=== PATIENT | female | born 1970 | race Caucasian/White ===

== ENCOUNTER 2018-11-20 13:31 | Emergency (ER) | payer OTHER ==
[~2018-11-20] VITALS: Ht 157.5 cm; Wt 70.3 kg
[2018-11-20 13:38] VITALS: Ht 157.5 cm; Wt 70.3 kg
[2018-11-20] MEDS ORDERED: KETOROLAC 30 MG INJ IV STA (14:07)
--- NOTE | 2018-11-20 14:14 | ERD ---
ER Documentation Chief Complaint Chief Complaint L hand swelling x 2 days HPI Patient is a 48 years old female with no known PMHx presenting to the clinic for sudden left hand swelling and pain since yesterday. Patient reports unable to close hand due to pain. Patient denies any injury or trauma. Patient admits to visiting her PCP who sent her to the ER. Patient denies fever, chills, rashes, joint pain. ROS All systems reviewed and are negative except as per history of present illness. Medications Home Meds Active Scripts Methylprednisolone* (Medrol* DOSE PACK) 4 Mg/Dose-Pack Tab.ds.pk, 4 MG PO . DIRECTED for 5 Days, PACKET Prov:ALFREDO PAIGE PA-C 11/20/18 Ibuprofen* (Motrin*) 800 Mg Tab, 800 MG PO Q6, #30 TAB Prov:ALFREDO PAIGE PA-C 11/20/18 Allergies Allergies: Coded Allergies: No Known Allergy (Unverified , 11/20/18) Physical Exam Vitals Vital Signs Date Temp Pulse Resp B/P (MAP) Pulse Ox O2 O2 Flow FiO2 Time Delivery Rate 11/20/18 98.1 71 18 113/63 100 Room Air 17:19 (80) 11/20/18 98.7 89 16 116/55 100 13:38 (75) Physical Exam Const: No acute distress Head: Atraumatic Eyes: Normal Conjunctiva ENT: Normal External Ears, Nose and Mouth. Neck: Full range of motion. No meningismus. Resp: Clear to auscultation bilaterally Cardio: Regular rate and rhythm, no murmurs Abd: Soft, non tender, non distended. Normal bowel sounds Skin: No petechiae or rashes Back: No midline or flank tenderness Ext: No cyanosis, or edema Neur: Awake and alert Psych: Normal Mood and Affect Left Hand Exam: Swelling & tenderness across entire hand and digits. Negative Tinel sign. Patient unable to form a fist for flex digits due to pain. No signs of gross trauma. Skin is soft to touch. No signs of erythema or induration. Result Diagram: 11/20/18 1437 11/20/18 1437 Results 24 hrs Laboratory Tests Test 11/20/18 14:37 11/20/18 15:15 White Blood Count 10.0 10^3/ul Red Blood Count 4.58 10^6/ul Hemoglobin 12.9 g/dl Hematocrit 39.5 % Mean Corpuscular Volume 86.2 fl Mean Corpuscular Hemoglobin 28.2 pg Mean Corpuscular Hemoglobin Concent 32.7 g/dl Red Cell Distribution Width 14.4 % Platelet Count 293 10^3/UL Mean Platelet Volume 9.0 fl Immature Granulocytes % 0.100 % Neutrophils % 57.1 % Lymphocytes % 34.0 % Monocytes % 6.8 % Eosinophils % 1.5 % Basophils % 0.5 % Nucleated Red Blood Cells % 0.0 /100WBC Immature Granulocytes # 0.010 10^3/ul Neutrophils # 5.7 10^3/ul Lymphocytes # 3.4 10^3/ul Monocytes # 0.7 10^3/ul Eosinophils # 0.2 10^3/ul Basophils # 0.1 10^3/ul Nucleated Red Blood Cells # 0.0 10^3/ul Sodium Level 142 mmol/L Potassium Level 3.7 mmol/L Chloride Level 106 mmol/L Carbon Dioxide Level 27 mmol/L Anion Gap 9 Blood Urea Nitrogen 8 mg/dl Creatinine 0.77 mg/dl Est Glomerular Filtrat Rate mL/min > 60 mL/min Glucose Level 74 mg/dl Calcium Level 9.0 mg/dl Total Bilirubin 0.3 mg/dl Direct Bilirubin 0.00 mg/dl Indirect Bilirubin 0.3 mg/dl Aspartate Amino Transf (AST/SGOT) 19 IU/L Alanine Aminotransferase (ALT/SGPT) 19 IU/L Alkaline Phosphatase 114 IU/L Total Protein 8.5 g/dl Albumin 4.2 g/dl Globulin 4.30 g/dl Albumin/Globulin Ratio 0.97 POC Beta HCG, Qualitative NEGATIVE Current Medications Medications Dose Sig/Jessica Start Time Status Last (Trade) Ordered Route PRN Stop Time Admin Dose Reason Admin 125 mg ONCE ONCE 11/20/18 DC 11/20/18 Methylprednis IV 14:30 14:55 olone Sodium 11/20/18 14:31 Succinate (Solu-Medrol) Ketorolac 30 mg ONCE STAT 11/20/18 DC 11/20/18 Tromethamine IV 14:07 14:55 (Toradol) 11/20/18 14:09 Procedures/MDM Patient was seen and evaluated for left hand swelling and pain without complications. CBC, CMP are grossly unremarkable. Patient was given Solumedrol IV and Toradol IV with improvement of symptoms. Left upper venous ultrasound revealed No evidence of thrombus or occlusion. Low suspicion of peripheral DVT. Repeat left hand exam showed significant reduction of swelling and mild tenderness to palpation fo palmar area. Patient is able to make a fist. Patient is stable and ready for discharge. F/U with PCP. Patient will be discharged with Medrol Dosepak and Ibuprofen. Patient was advised that she might be experiencing possible rheumatoid arthritis and was advised to see a orthopaedic technologist. Departure Diagnosis: Primary Impression: Pain of hand Laterality: left Qualified Codes: M79.642 - Pain in left hand Condition: Stable Patient Instructions: Sprain Hand Referrals: [facility] Additional Instructions: Paciente aconseja volver a Departamento de urgencias inmediatamente para sntomas nuevos o que empeoran . Paciente aconseja posteriores con el PCP en 2-3 huitron . Paciente verbaliza la comprehensin y est de acuerdo con el tratamiento y el curso de accin. Si el paciente no tiene ninguna de atencin primaria pueden seguir con [facility] [address] [place] [address] o [facility] + [address] [address] ALFREDO PAIGE PA-C Nov 20, 2018 14:14
[2018-11-20] MEDS ORDERED: METHYLPREDNISOLONE 125 MG INJ IV ONE (14:30)
[2018-11-20] MEDS ORDERED: IBUP800T48 PO (17:07)
[2018-11-20] MEDS ORDERED: MED4DP PO (17:07)
[2018-11-20 17:19] VITALS: BP 113/63; PULSE 71; RESP 18
== END 2018-11-20 17:50 | disposition home or self-care (01) ==
LOC: FTE 13:31
DX: M79.642 Pain in left hand (principal)
CPT/HCPCS: 80053; 81025; 85025; 93971; 96374; 96375; J1885; J2930; Z7502